=== PATIENT | female | born 1970 | race Caucasian/White ===

== ENCOUNTER → 2021-01-22 11:53 | Outpatient (CLI) | payer OTHER, SELFPAY ==
--- NOTE | ~2021-01-22 | XR_ITS ---
XR lumbar spine 2-3V DATE: 01/22/2021 12:07 INDICATION: Low back pain TECHNIQUE: Standing AP, lateral and coned lateral lumbosacral views COMPARISON: None FINDINGS: There is diffuse osteopenia. There is moderate rotatory levoscoliosis of the lumbar spine. No fracture or bone destruction or spondylolisthesis. Lumbar and lumbosacral spaces appear relatively well preserved. The sacroiliac joints are intact. Radiopaque sutures are noted in the medial left upper quadrant. Surgical clips, right upper quadrant, consistent with cholecystectomy. IMPRESSION: Diffuse osteopenia Rotatory levoscoliosis of the lumbar spine Reviewed, dictated and finalized at location B.
== END ==
PROVIDERS: Visit Provider Nurse Practitioner Family
DX: M54.5 Low back pain (principal); M85.88 Other specified disorders of bone density and structure, other site
CPT/HCPCS: 72100